=== PATIENT | female | born 1975 | race Caucasian/White ===

== ENCOUNTER → 2018-06-15 | Outpatient (CLI) | payer OTHER | LOC: MC.RAD 14:54 | DX: Z12.31 Encounter for screening mammogram for malignant neoplasm of breast (principal) ==

== ENCOUNTER → 2019-02-24 | Outpatient (CLI) | payer OTHER | LOC: COL.RAD 02-23 09:00 | DX: R10.13 Epigastric pain (principal) ==

== ENCOUNTER → 2020-03-09 | Outpatient (CLI) | payer OTHER | LOC: COL.RAD 07:39 | DX: R14.0 Abdominal distension (gaseous) (principal) | CPT/HCPCS: A9541 ==

== ENCOUNTER → 2020-03-28 | Outpatient (CLI) | payer OTHER | LOC: COL.RAD 03-21 10:30 | DX: R10.84 Generalized abdominal pain (principal) | CPT/HCPCS: Q9967 ==